=== PATIENT | female | born 2000 | race Caucasian/White ===

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

== ENCOUNTER 2024-04-01 10:30 | Emergency (ER) | payer OTHER ==
[~2024-04-01] VITALS: Ht 160 cm; Wt 83.9 kg
[2024-04-01] MEDS ORDERED: ZPAK PO (11:25)
[2024-04-01 11:27] VITALS: BP 121/75
== END 2024-04-01 11:41 | disposition home or self-care (01) ==
LOC: ED 10:30
DX: J06.9 Acute upper respiratory infection, unspecified (principal); Z20.822 Contact with and (suspected) exposure to COVID-19

== ENCOUNTER 2024-04-12 17:03 | Emergency (ER) | payer OTHER ==
[~2024-04-12] VITALS: Ht 160 cm; Wt 87.0 kg
[~2024-04-12 17:03] MED LIST changes: +ZPAK PO
[2024-04-12] MEDS ORDERED: MEDDOSEPAK PO (19:11)
[2024-04-12] MEDS ORDERED: MUCUS RELIEF600 M1 PO (19:11)
[2024-04-12] MEDS ORDERED: ZYRTEC10 MG PO (19:11)
[2024-04-12 19:14] VITALS: BP 137/88
== END 2024-04-12 19:14 | disposition home or self-care (01) ==
LOC: ED 17:03
DX: J06.9 Acute upper respiratory infection, unspecified (principal); Z20.822 Contact with and (suspected) exposure to COVID-19
CPT/HCPCS: J1100